=== PATIENT | female | born 1995 | race American Indian/Alaskan Native ===

== ENCOUNTER 2016-12-23 08:39 | Outpatient (CLI) | payer MEDICAID ==
[2016-12-23 09:53] LABS: Urine Drugs of Abuse Note Disclamer
[2016-12-23] MEDS ORDERED: LACTATED RINGERS 1,000 ML ONE (10:10)
[2016-12-23 10:12] LABS: Bilirubin,Urine NEG (Negative); Blood,Urine NEG (Negative); Ketones,Urine 20 mg/dL (Negative); Leukocyte Esterase,Urine TR (Negative); Mucus,Urine 3+ /HPF; Nitrite,Urine NEG (Negative)
[2016-12-23 11:23] VITALS: BP 105/62
== END 2016-12-23 11:58 | disposition home or self-care (01) ==
LOC: TRG 08:39
PROVIDERS: ATTEND Obstetrics & Gynecology
DX: O47.1 False labor at or after 37 completed weeks of gestation (principal); Z3A.38 38 weeks gestation of pregnancy
CPT/HCPCS: 59025; 80307; 81001; 96360; J7120

== ENCOUNTER 2017-01-01 22:38 | Outpatient (CLI) | payer MEDICAID ==
[2017-01-01 23:06] VITALS: BP 124/68
[2017-01-01] MEDS ORDERED: LACTATED RINGERS 1,000 ML ONE (23:49)
[2017-01-02] MEDS ORDERED: LACTATED RINGERS 1,000 ML IV ONE
== END 2017-01-02 00:47 | disposition home or self-care (01) ==
LOC: TRG 22:38
PROVIDERS: ATTEND Obstetrics & Gynecology
DX: Z34.93 Encounter for supervision of normal pregnancy, unspecified, third trimester (principal); Z3A.39 39 weeks gestation of pregnancy
CPT/HCPCS: 59025; 96360; J7120